=== PATIENT | male | born 1990 | race Caucasian/White ===

== ENCOUNTER → 2022-10-14 | Outpatient (CLI) | payer OTHER ==
--- NOTE | 2022-10-15 08:20 | XR ---
EXAMINATION TYPE: XR ankle complete RT DATE OF EXAM: 10/14/2022 CLINICAL HISTORY: Pain after recent injury. TECHNIQUE: Frontal, lateral and oblique images of the right ankle are obtained. COMPARISON: Prior right ankle x-ray October 03, 2022. FINDINGS: Improved soft tissue swelling over the lateral malleolus. Persistent 1.3 cm bony fragment b elow the lateral malleolus. Ankle mortise symmetry is preserved. Persistent tibiotalar joint effusion . Posterior and medial malleoli are intact. IMPRESSION: As above. Improved soft tissue swelling otherwise no significant change from prior exam. Age-indeterminate fracture from the lateral malleolus is redemonstrated.
== END | disposition home or self-care (01) ==
LOC: RADXRMAIN 16:26
PROVIDERS: ATTEND Emergency Medicine
DX: S93.401D Sprain of unspecified ligament of right ankle, subsequent encounter (principal); M25.471 Effusion, right ankle; M79.89 Other specified soft tissue disorders; Y99.9 Unspecified external cause status